=== PATIENT | male | born 1975 | race Caucasian/White ===

== ENCOUNTER 2019-12-07 19:40 | Emergency (ER) | payer OTHER, SELFPAY ==
[2019-12-07 19:56] VITALS: BP 129/76; PULSE 87; RESP 18; TEMP 36.1; O2SAT 100
--- NOTE | 2019-12-07 20:44 | ED.SKABFB ---
HPI - Skin/Abscess/Foreign Bdy General Chief complaint: Skin/Abscess/Foreign Body Stated complaint: fish hook in right thumb Time Seen by Provider: 12/07/19 20:17 Source: patient and family Mode of arrival: ambulatory Limitations: no limitations History of Present Illness HPI narrative: 43-year-old with no major medical problems here with complaints of fishhook to the right thumb, patient states that he was trying to get the hook out for last 1 hour but he was having extreme pain could not remove the hook at home. He denies any other complaints or injuries at this time. Tetanus up to date: yes Location: R hand (Right thumb) Severity: mild Exacerbating factors: none Context: none Associated symptoms: denies other symptoms Related Data Allergies Allergy/AdvReac Type Severity Reaction Status Date / Time levofloxacin [From Levaquin] Allergy Severe unknown Verified 03/25/19 15:31 Review of Systems Review of Systems: All systems reviewed & are unremarkable except as noted in HPI and below Constitutional: Constitutional: Reports no additional constitutional complaints Cardiovascular: Cardiovascular: Reports no additional cardiovascular complaints Respiratory: Respiratory: Reports no additional respiratory complaints Gastrointestinal: Gastrointestinal: Reports no additional gastrointestinal complaints PMFSH Past Medical History Medical History Anxiety GERD (gastroesophageal reflux disease) Surgical History Surgical History H/O knee surgery Hx of appendectomy Family History Family History Mother Hypertension Father Patient's father is in good health Social History Social History Smoking packs per day: 4 Smoking cigarettes per day: 80.0 Smoking status: Current some day smoker Alcohol intake: current Substance use type: does not use Exam Narrative: Exam Narrative: GENERAL: Well-appearing, well-nourished, and in no acute distress. HEAD: Normocephalic, atraumatic.. CHEST: Clear to auscultation. No respiratory distress. HEART: Regular rate and rhythm. No murmur heard. EXTREMITIES: Normal range of motion. No edema.fish hook present to the right thumb SKIN: Warm, dry, no rash. NEURO: No focal deficits. Alert and oriented x3. PSYCH: Normal mood and affect. Course Vital Signs Vital signs: Vital Signs Temperature 36.1 C L 12/07/19 19:56 Pulse Rate 87 12/07/19 19:56 Respiratory Rate 18 12/07/19 19:56 Blood Pressure 129/76 12/07/19 19:56 Pulse Oximetry 100 12/07/19 19:56 Temperature 36.1 C L 12/07/19 19:56 Pulse Rate 87 12/07/19 19:56 Respiratory Rate 18 12/07/19 19:56 Blood Pressure 129/76 12/07/19 19:56 Pulse Oximetry 100 12/07/19 19:56 Procedures Other Procedure Procedure 1: Other Procedure: Fish Hook rremoval Inform patient about the procedure. 1% lidocaine given locally at the base of the nail. With gentle manipulation with the nail forceps hook was removed in total. Finger was soaked in Betadine solution for 10 minutes and was later washed with sterile water and Coban dressing was applied. Patient tolerated procedure well. Discharge Plan Discharge Clinical Impression: Fish hook injury of finger Qualifiers: Encounter type: initial encounter Laterality: right Qualified Code(s): S69.91XA - Unspecified injury of right wrist, hand and finger(s), initial encounter Patient Disposition: Home, Self-Care Condition: Stable Instructions: Antibiotic Form, Puncture Wound (DC) Additional Instructions: take tylenol or motrin for pain Prescriptions: No Action alprazolam 0.25 mg tablet 0.25 mg PO DAILY PRN (Reason: anxiety) Qty: 30 RF: 2 Follow-up/Referrals: Josh Medina DO [Primary Care Provider] - Time of Dispositio
[2019-12-07 21:05] VITALS: BP 131/65; PULSE 83; RESP 16; TEMP 36.8; O2SAT 100
== END 2019-12-07 21:10 | disposition home or self-care (01) ==
PROVIDERS: Emergency Provider Family Medicine; PCP Internal Medicine
DX: S60.351A Superficial foreign body of right thumb, initial encounter (principal); K21.9 Gastro-esophageal reflux disease without esophagitis; F17.210 Nicotine dependence, cigarettes, uncomplicated; W45.8XXA Other foreign body or object entering through skin, initial encounter
CPT/HCPCS: 99282

== ENCOUNTER 2020-08-12 06:17 | Emergency (ER) | payer OTHER, SELFPAY ==
--- NOTE | ~2020-08-12 | CT_ITS ---
EXAMINATION: CT abdomen pelvis w con DATE: 08/12/2020 08:20 INDICATION: Right lower quadrant abdominal pain. TECHNIQUE: Computed tomography (CT) of the abdomen and pelvis was performed with 100 mL Omnipaque 350 intravenous contrast. Automated exposure control and iterative reconstruction technique were employe d. The dose-length product was 1168.90 mGy-cm. COMPARISON: None. FINDINGS: The visualized portions of the lung bases are clear without pneumonia or pleural effusion. The heart size is normal. No pericardial effusion. The liver, gallbladder, spleen, pancreas, adrenal glands, and kidneys are normal. The prostate is mildly enlarged. There are changes of appendectomy. T here are no pathologically enlarged lymph nodes. There is no free intraperitoneal fluid. There is an umbilical hernia containing fat. There are small bilateral inguinal hernias containing fat. There are benign bone islands in the pelvis and proximal femora. There is mild thoracolumbar spondylosis. IMPRESSION: 1. Umbilical hernia and bilateral inguinal hernias containing fat. Reviewed, dictated and finalized at location A.
--- NOTE | ~2020-08-12 | XR_ITS ---
EXAMINATION: XR hip RT min 3V w AP pelvis DATE: 08/12/2020 08:32 INDICATION: Atraumatic right hip pain. TECHNIQUE: Anteroposterior view of the pelvis and anteroposterior, frog leg and crosstable lateral vi ews of the right hip were obtained. COMPARISON: CT dated 08/12/2020 FINDINGS: Bone alignment is normal. No fracture or suspected avascular necrosis. Bilateral hip and sacroiliac j oint spaces are normal. Small right os acetabulum. Bilateral decreased femoral head neck offset with mild cystic change at the bilateral anterosuperior femoral head neck junctions suggesting sequela of cam-type femoral acetabular impingement. Excreted contrast in the immediately prior contrast enhanced CT in the visualized portions of the normal appearing bilateral mid to distal bilateral ureters and in the bladder. Postoperative changes with suture line in the right lower quadrant. IMPRESSION: 1. 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 No acute osseous normality. Reviewed, dictated and finalized at location A. IMPRESSION: 1. 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 No acute osseous normality.
[2020-08-12 06:29] VITALS: BP 143/97; PULSE 82; RESP 16; TEMP 37.2; O2SAT 100
--- NOTE | 2020-08-12 07:04 | ED.LOWEXIN ---
HPI - Extremity Injury (Lower) General Chief Complaint: Extremity Injury, Lower Stated Complaint: hip pain Time Seen by Provider: 08/12/20 07:03 Source: patient Mode of arrival: ambulatory Limitations: no limitations History of Present Illness HPI Narrative: Patient is a 44-year-old male who presents for evaluation of right hip pain. Patient states hip pain began on Sunday, no reported trauma. Described as dull, aching in nature, worse with movement over the past 48 hours. No fever, chills, he has had some mild nausea. No radiation of the pain to the back. He does report some lower right abdominal pain and radiation into the pelvis. No dysuria or hematuria. No history of nephrolithiasis. No history of injury to that hip or extremity in the past. No swelling or bruising. No numbness. No weakness. Pain at times is sharp in nature, no associated swelling or redness. He has a history of appendectomy. Denies other abdominal surgical history or history of medical problems. Patient currently taking a course of Keflex for a bee sting on his right arm, states that swelling and redness is now basically resolved. Related Data Allergies Allergy/AdvReac Type Severity Reaction Status Date / Time levofloxacin [From Levaquin] Allergy Severe unknown Verified 08/12/20 06:40 Review of Systems Review of Systems: Narrative: CONSTITUTIONAL: Denies fever, chills, or sweats. ENT: Denies rhinorrhea, congestion, sore throat, or otalgia. CARDIOVASCULAR: Denies chest pain, palpitations, or edema. RESPIRATORY: Denies cough or dyspnea. GASTROINTESTINAL: Reports right lower pelvic pain, reports nausea without vomiting, denies diarrhea GENITOURINARY: Denies dysuria or hematuria. No frequency or urgency SKIN: Denies rash or itching. MUSCULOSKELETAL: Denies back pain, reports right hip pain NEUROLOGIC: Denies headache, numbness, or weakness. PSYCHIATRIC: Denies anxiety or depression. [facility] Past Medical History Medical History Anxiety GERD (gastroesophageal reflux disease) Surgical History Surgical History H/O knee surgery Hx of appendectomy Family History Family History Mother Hypertension Father Patient's father is in good health Social History Social History Years smoked: 15 Smoking status: Current every day smoker Alcohol intake: current Substance use type: does not use Gender identity (if verbalized by the patient): Male Exam Narrative: Exam Narrative: GENERAL: Awake, alert, conversant HEAD: Normocephalic, atraumatic. EYES: PERRLA and EOMI. ENT: Nares clear, no rhinorrhea or epistaxis. Mucous membranes moist. NECK: Supple. CHEST: No respiratory distress, breathing even and non labored HEART: Regular rate, sinus rhythm ABDOMEN:Non distended, non tender Pelvis: Tenderness to the right lateral hip without erythema or edema. No deformity. Patient with normal range of motion however there is pain present. No right lower extremity pitting edema or ecchymoses. EXTREMITIES: Normal range of motion. No edema. SKIN: Warm, dry, no rash. NEURO:No focal deficits. Alert and oriented x3 Course Vital Signs Vital signs: Vital Signs Temperature 37.2 C 08/12/20 06:29 Pulse Rate 82 08/12/20 06:29 Respiratory Rate 16 08/12/20 06:29 Blood Pressure 143/97 H 08/12/20 06:29 Pulse Oximetry 100 08/12/20 06:29 Temperature 37.2 C 08/12/20 06:29 Pulse Rate 82 08/12/20 06:29 Respiratory Rate 16 08/12/20 06:29 Blood Pressure 143/97 H 08/12/20 06:29 Pulse Oximetry 100 08/12/20 06:29 MDM - Extremity Injury (Lower) MDM Narrative Medical decision making narrative: Patient presenting for evaluation of atraumatic right hip pain. At the time of assessment, ABCs are intact and vital signs are st
[2020-08-12] MEDS: MORPHINE SULFATE (*CRX) 4 MG/ML INJ IV PUSH (07:28)
[2020-08-12] MEDS: ONDANSETRON INJ 4 MG/2 ML VIAL IV PUSH (07:28)
[2020-08-12] MEDS: SODIUM CHLORIDE 0.9% IV 1,000 ML 999 ML IV CONT (07:28)
[2020-08-12 07:31] LABS: Basophils Absolute Auto 0.1 K/mm3 (0.0-0.1); Basophils Percent Auto 0.6 % (0.2-1.2); Eosinophils Absolute Auto 0.1 K/mm3 (0-0.3); Hematocrit 45.3 % (42.0-52.0); Immature Granulocyte Absolute 0.18 K/mm3 (0.00-0.031); Immature Granulocyte Percent A 1.8 % (0-0.5); Lymphocytes Absolute Auto 1.58 K/mm3 (0.9-3.2); Lymphocytes Percent Auto 15.4 % (18.3-44.2); Mean Corpuscular HGB Conc 35.3 g/dl (32-36); Mean Corpuscular Hemoglobin 31.1 pg (26-34); Mean Platelet Volume 9.2 fl (7.4-10.4); Monocytes Absolute Auto 0.9 K/mm3 (0.1-0.6); Monocytes Percent Auto 8.6 % (2.6-8.5); Neutrophils Absolute Auto 7.5 K/mm3 (1.3-6.7); Neutrophils Percent Auto 72.6 % (45.5-73.1); Platelet Count Result 191 k/mm3 (150-375); Red Blood Count 5.15 M/mm3 (4.6-6.20); Red Cell Distribution Width 11.9 % (11.5-14.5); White Blood Count 10.3 K/mm3 (4.5-10.0)
[2020-08-12 07:37] LABS: Add Urine Microscopic? NO; Appearance Urine Clear (Clear); Bilirubin Urine Negative (Negative); Blood Urine Negative (Negative); Color Urine Colorless (Yellow); Glucose Urine UA Negative (Negative); Ketones Urine Negative (Negative); Leukocyte Esterase Ur Negative LEU/UL (Negative); Nitrate Urine Negative (Negative); Protein Urine Negative (Negative); Urobilinogen Urine Negative mg/dL (<2.0)
[2020-08-12 07:39] LABS: Alanine Aminotransferase 67 U/L (4-50); Alkaline Phosphatase 58 U/L (38-126); Anion Gap 7 mmol/L (8-16); Aspartate Amino Transferase 42 U/L (17-59); Bilirubin,Total 0.6 mg/dL (0.2-1.3); Blood Urea Nitrogen 13 mg/dL (9-20); CRP 0.9 mg/dL (<1.0); Calcium 9.1 mg/dL (8.4-10.2); Carbon Dioxide 25 mmol/L (22-30); Chloride 107 mmol/L (98-107); Estimated CRCL calculation 117 ml/min; Estimated Glomerular Filt Rate > 60; Glucose 100 mg/dL (75-110); Lipase 318 U/L (23-300); Potassium 4.1 mmol/L (3.4-5.0); Sodium 139 mmol/L (137-145)
[2020-08-12 07:40] LABS: Specific Grav Ur 1.003 (1.001-1.035)
[2020-08-12 08:28] LABS: Erythrocyte Sedimentation Rate 8 mm/hr (0-20)
[2020-08-12 10:10] VITALS: BP 139/92; PULSE 82; RESP 16
== END 2020-08-12 10:10 | disposition home or self-care (01) ==
PROVIDERS: Emergency Provider Emergency Medicine; PCP Internal Medicine
DX: M25.851 Other specified joint disorders, right hip (principal); K21.9 Gastro-esophageal reflux disease without esophagitis; F41.9 Anxiety disorder, unspecified; F17.200 Nicotine dependence, unspecified, uncomplicated; K42.9 Umbilical hernia without obstruction or gangrene; K40.20 Bilateral inguinal hernia, without obstruction or gangrene, not specified as recurrent
CPT/HCPCS: 36415; 73502; 74177; 80053; 81003; 83690; 85025; 85652; 86140; 96361; 96374; 96375; 99284; J2270; J2405; J7030; Q9967

== ENCOUNTER 2022-01-23 00:55 | Day surgery (SDC) | payer OTHER, SELFPAY ==
[2022-01-12 13:31] VITALS: BMI 27.0
[2022-01-23 07:15] VITALS: BP 131/79; PULSE 81; RESP 18; TEMP 36.2; O2SAT 100; BMI 27.4
[2022-01-23] MEDS: LACTATED RINGERS 1,000 ML 150 ML IV CONT (07:30)
--- NOTE | 2022-01-23 08:02 | PM.HPGS ---
History of Present Illness History of Present Illness Consent: Risks, benefits, and alternatives have been discussed and questions answered. Patient agrees to proceed with procedure. Chief complaint: neoplasm screening Narrative: Yan Hastings is a 46 year old male presents for screening colonoscopy. Patient has current weight appetite bowel movements appear normal. Patient denies abdominal pain. He has had no bleeding. Family history is significant his brother and father his grandmother have had colon polyps. Patient presents today for screening exam. Review of Systems Review of Systems: Review of systems noncontributory. [facility] Past Medical History Medical History (Updated 10/12/21 @ 14:39 by Kristal Hays NP) Anxiety GERD (gastroesophageal reflux disease) Hypertension Surgical History Surgical History H/O knee surgery Hx of appendectomy Family History Family History (Updated 10/12/21 @ 14:16 by Kaylan Pop CMA) Mother Hypertension Father Patient's father is in good health Patient states most of his family gets a colonoscopy every 5 years, unsure why, thinks grandmother of colon cancer. Social History Social History (Updated 10/12/21 @ 14:17 by Kaylan Pop CMA) Smoking packs per day: 0.5 Smoking cigarettes per day: 10.0 Years smoked: 15 Smoking pack-years: 7.50 Smoking status: Current every day smoker Tobacco type: cigarettes Alcohol intake: current Drinks per week: 30 Alcohol use details: daily Substance use: never Substance use type: does not use Living arrangements: with family Gender identity (if verbalized by the patient): Male Spiritual care concerns: No Meds Home Medications and Allergies Home Medications Medication Instructions Recorded Confirmed Type lisinopril 10 mg tablet 10 mg PO DAILY #90 tabs 04/13/21 01/23/22 Rx ibuprofen 200 mg tablet 400 mg PO Q6H PRN Pain 10/12/21 01/23/22 History alprazolam 0.25 mg tablet 0.25 mg PO DAILY PRN anxiety #30 01/20/22 01/23/22 Rx tabs Allergies Allergy/AdvReac Type Severity Reaction Status Date / Time levofloxacin [From Levaquin] Allergy Severe unknown Verified 01/23/22 07:21 Vital Signs Vital Signs - 24 hr 01/23/22 07:15 Temperature 97.1 F L Pulse Rate 81 Respiratory Rate 18 Blood Pressure 131/79 Pulse Oximetry 100 Oxygen Delivery Room Air Exam Narrative: Physical exam reveals patient to be alert. Vital signs stable. HEENT exam is unremarkable. Patient is anicteric. Lungs are clear to auscultation and percussion. Heart is without murmur or extra sounds. Abdomen bowel sounds are present soft nontender with no organomegaly. Digital external rectal exam is normal. Assessment and Plan Assessment and plan (1) Screening for colon cancer: Code(s): Z12.11 - Encounter for screening for malignant neoplasm of colon Status: Acute Assessment and Plan: Patient presents for screening colonoscopy. He does have a family history of colon polyps in several first-degree relatives. May benefit from follow-up colonoscopy at 5-7 year intervals. Further recommendations may be given after endoscopy.
--- NOTE | 2022-01-23 08:20 | P.PNAN_ITS ---
Anes - Initial Pre Proc Eval Procedure: Operation Date: 01/23/22 08:30 Proposed Procedures p Screening Colonoscopy - Joseph Mehta MD Date/Time: 01/23/22 08:20 Surgeon: Joseph Mehta MD Pre Op Diagnosis: neoplasm screening Patient Data Age: 46 Gender: M Height: 1.88 m Weight: 96.9 kg Last Vital Signs Temp 97.1 F L 01/23/22 07:15 Pulse 81 01/23/22 07:15 Resp 18 01/23/22 07:15 BP 131/79 01/23/22 07:15 Pulse Ox 100 01/23/22 07:15 O2 Del Method Room Air 01/23/22 07:15 Allergies Allergy/AdvReac Type Severity Reaction Status Date / Time levofloxacin [From Levaquin] Allergy Severe unknown Verified 01/23/22 07:21 Home Medications Medication Instructions Recorded Confirmed Type lisinopril 10 mg tablet 10 mg PO DAILY #90 tabs 04/13/21 01/23/22 Rx ibuprofen 200 mg tablet 400 mg PO Q6H PRN Pain 10/12/21 01/23/22 History alprazolam 0.25 mg tablet 0.25 mg PO DAILY PRN anxiety #30 01/20/22 01/23/22 Rx tabs Patient hx anesthesia problems: none Family hx anesthesia problems: none Results Review: All pre-operative results and documents have been reviewed as part of the pre- operative evaluation. [facility] Past Medical History Medical History (Updated 10/12/21 @ 14:39 by Kristal Hays NP) Anxiety GERD (gastroesophageal reflux disease) Hypertension Surgical History Surgical History H/O knee surgery Hx of appendectomy Family History Family History (Updated 10/12/21 @ 14:16 by Kaylan Pop CMA) Mother Hypertension Father Patient's father is in good health Patient states most of his family gets a colonoscopy every 5 years, unsure why, thinks grandmother of colon cancer. Social History Social History (Updated 10/12/21 @ 14:17 by Kaylan Pop CMA) Smoking packs per day: 0.5 Smoking cigarettes per day: 10.0 Years smoked: 15 Smoking pack-years: 7.50 Smoking status: Current every day smoker Tobacco type: cigarettes Alcohol intake: current Drinks per week: 30 Alcohol use details: daily Substance use: never Substance use type: does not use Living arrangements: with family Gender identity (if verbalized by the patient): Male Spiritual care concerns: No Anes - Eval Final PreProcedure Day of Procedure 01/23/22 08:20 Patient weight: normal Heart: regular rate and rhythm Lungs: clear to auscultation Airway: Mallampati scale class II Neurological: alert and oriented Last oral intake: >/= 8 hours ASA classification: II Emergent: no Anesthetic plan: proceed Anesthesia type and monitoring: general GIVS and standard monitoring Results Review: All pre-operative results and documents have been reviewed as part of the pre- operative evaluation. Informed Consent: The patient's anesthetic plan and its attendant risks and benefits were discussed with the patient/family/POA. Questions were solicited and answers provided to the satisfaction of the patient/family/POA.
[2022-01-23 08:44] VITALS: BP 116/85; PULSE 83; RESP 18; O2SAT 100
[2022-01-23 08:54] VITALS: BP 115/75; PULSE 85; RESP 18; O2SAT 100
[2022-01-23 09:04] VITALS: BP 114/79; PULSE 84; RESP 18; O2SAT 99
== END 2022-01-23 09:13 | disposition home or self-care (01) ==
PROVIDERS: PCP Internal Medicine; Visit Provider Internal Medicine Gastroenterology
PROC: 0DJD8ZZ Inspection of Lower Intestinal Tract, Via Natural or Artificial Opening Endoscopic (ICD-10-PCS; CPT 45378; principal; 2022-01-23 08:30)
DX: Z12.11 Encounter for screening for malignant neoplasm of colon (principal); D12.2 Benign neoplasm of ascending colon; Z83.71 Family history of colonic polyps; I10 Essential (primary) hypertension; F41.9 Anxiety disorder, unspecified; F17.210 Nicotine dependence, cigarettes, uncomplicated
CPT/HCPCS: 45385; 88305; J2704; J7120

== ENCOUNTER 2022-04-18 09:03 | Outpatient (CLI) | payer OTHER, SELFPAY ==
[2022-04-18 19:08] LABS: Alanine Aminotransferase 40 U/L (6-50); Albumin Level 4.3 g/dL (3.5-5.1); Alkaline Phosphatase 55 U/L (38-126); Anion Gap 6 mmol/L (8-16); Aspartate Amino Transferase 45 U/L (17-59); Bilirubin,Total 0.9 mg/dL (0.2-1.3); Blood Urea Nitrogen 18 mg/dL (9-20); Calcium 9.3 mg/dL (8.4-10.2); Carbon Dioxide 30 mmol/L (22-30); Chloride 101 mmol/L (98-107); Cholesterol 207 mg/dL (0-200); Estimated Glomerular Filt Rate > 60; Glucose 94 mg/dL (65-110); HDL Direct 50 mg/dL; Potassium 4.6 mmol/L (3.4-5.0); Sodium 137 mmol/L (137-145); Triglycerides 67 mg/dL (<150)
[2022-04-18 19:19] LABS: LDL Cholesterol Direct 112 mg/dL
[2022-04-18 19:34] LABS: Thyroid Stimulating Hormone 0.972 uIU/mL (0.465-4.680)
[2022-04-18 20:38] LABS: Basophils Absolute Auto 0.1 K/mm3 (0.0-0.1); Basophils Percent Auto 0.7 % (0.2-1.2); Eosinophils Absolute Auto 0.1 K/mm3 (0-0.3); Eosinophils Percent Auto 1.7 % (0-4.4); Hematocrit 47.5 % (42.0-52.0); Hemoglobin 16.1 g/dL (14.0-18.0); Immature Granulocyte Absolute 0.03 K/mm3 (0.00-0.031); Immature Granulocyte Percent A 0.4 % (0-0.5); Lymphocytes Percent Auto 30.6 % (18.3-44.2); Mean Corpuscular HGB Conc 33.9 g/dl (32-36); Mean Corpuscular Volume 91.3 fl (80-100); Mean Platelet Volume 9.8 fl (7.4-10.4); Monocytes Absolute Auto 0.8 K/mm3 (0.1-0.6); Neutrophils Absolute Auto 4.3 K/mm3 (1.3-6.7); Neutrophils Percent Auto 56.6 % (45.5-73.1); Platelet Count Result 235 k/mm3 (150-375); Red Cell Distribution Width 11.7 % (11.5-14.5); White Blood Count 7.5 K/mm3 (4.5-10.0)
[2022-04-28 16:20] LABS: Testosterone Free 48.9 pg/mL (35.0-155.0); Testosterone Total 376 ng/dL (250-1100)
== END 2022-04-18 09:04 | disposition home or self-care (01) ==
LOC: ANHGOSHLAB 09:04
PROVIDERS: PCP Internal Medicine; Visit Provider Nurse Practitioner
DX: R53.83 Other fatigue (principal); I10 Essential (primary) hypertension; Z13.220 Encounter for screening for lipoid disorders; Z13.29 Encounter for screening for other suspected endocrine disorder
CPT/HCPCS: 36415; 80053; 80061; 84402; 84403; 84443; 85025

== ENCOUNTER 2023-04-01 20:21 | Emergency (ER) | payer OTHER, SELFPAY ==
--- NOTE | ~2023-04-01 | XR_ITS ---
EXAMINATION: XR chest 2V Exam Date/Time: 04/01/2023 20:35 MAGAZINE JOURNALIST HISTORY: cp Comparison: 05/23/2004. RESULT: Lines, tubes, and devices: None. Lungs and pleura: Clear. Cardiomediastinal silhouette: Stable. Other: No acute osseous or upper abdominal finding. IMPRESSION: No acute cardiopulmonary process. Reviewed, dictated and finalized at location K. ZINE JOURNALIST
--- NOTE | 2023-04-01 20:22 | ECG_ITS ---
Measurements Intervals [place] Rate: 99 P: 53 MT: 186 QRS: 31 QRSD: 111 T: 62 QT: 326 QTc: 419 Interpretive Statements SINUS RHYTHM INCOMPLETE RIGHT BUNDLE BRANCH BLOC BASELINE ARTIFACT- I, II, AVR BORDERLINE ECG NO PREVIOUS ECG AVAILABLE FOR COMPARISON Electronically Signed On 04-01-2023 21:22:14 [facility] by Jese Wu D.O.
[2023-04-01 20:27] VITALS: BP 144/96; PULSE 104; RESP 14; TEMP 36.8; O2SAT 98
[2023-04-01 20:35] LABS: Basophils Percent Auto 0.3 % (0.2-1.2); Eosinophils Absolute Auto 0.1 K/mm3 (0-0.3); Eosinophils Percent Auto 1.5 % (0-4.4); Hematocrit 45.7 % (42.0-52.0); Hemoglobin 15.6 g/dL (14.0-18.0); Immature Granulocyte Absolute 0.03 K/mm3 (0.00-0.031); Immature Granulocyte Percent A 0.3 % (0-0.5); Lymphocytes Absolute Auto 2.52 K/mm3 (0.9-3.2); Lymphocytes Percent Auto 28.1 % (18.3-44.2); Mean Corpuscular HGB Conc 34.1 g/dl (32-36); Mean Corpuscular Hemoglobin 30.6 pg (26-34); Mean Corpuscular Volume 89.8 fl (80-100); Mean Platelet Volume 8.9 fl (7.4-10.4); Monocytes Absolute Auto 0.8 K/mm3 (0.1-0.6); Monocytes Percent Auto 8.8 % (2.6-8.5); Neutrophils Absolute Auto 5.5 K/mm3 (1.3-6.7); Platelet Count Result 212 k/mm3 (150-375); Red Blood Count 5.09 M/mm3 (4.6-6.20); Red Cell Distribution Width 11.7 % (11.5-14.5)
[2023-04-01 20:46] LABS: INR 0.9; Prothrombin Time 12.3 Seconds (11.1-14.7)
[2023-04-01 20:48] LABS: Ethanol 79 mg/dL (<10)
[2023-04-01 20:49] LABS: Alanine Aminotransferase 45 U/L (6-50); Albumin Level 4.5 g/dL (3.5-5.1); Alkaline Phosphatase 61 U/L (38-126); Anion Gap 10 mmol/L (8-16); Aspartate Amino Transferase 37 U/L (17-59); Bilirubin,Total 0.7 mg/dL (0.2-1.3); Blood Urea Nitrogen 14 mg/dL (9-20); Calcium 9.2 mg/dL (8.4-10.2); Carbon Dioxide 24 mmol/L (22-30); Chloride 100 mmol/L (98-107); Estimated CRCL calculation 115 ml/min; Estimated Glomerular Filt Rate > 60; Glucose 114 mg/dL (65-110); Lipase 322 U/L (23-300); Potassium 3.3 mmol/L (3.4-5.0); Sodium 134 mmol/L (137-145)
[2023-04-01 21:00] LABS: Troponin I 0.015 ng/mL (0.000-0.034)
[2023-04-01] MEDS: ASPIRIN 81 MG CHEWABLE TABLET 324 MG PO (21:22)
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
[2023-04-01 23:17] LABS: Appearance Urine Clear (Clear); Bilirubin Urine Negative (Negative); Blood Urine Negative (Negative); Color Urine Yellow (Yellow); Glucose Urine UA Negative (Negative); Ketones Urine Negative (Negative); Leukocyte Esterase Ur Negative LEU/UL (Negative); Nitrate Urine Negative (Negative); Protein Urine Negative (Negative); Specific Grav Ur 1.007 (1.001-1.035); Urobilinogen Urine 0.2 mg/dL (<2.0); pH Urine 5.5 (5.0-9.0)
[2023-04-01 23:20] LABS: Add Urine Microscopic? NO
[2023-04-01 23:40] LABS: Troponin I 0.015 ng/mL (0.000-0.034)
[2023-04-02 00:04] VITALS: BP 142/92; PULSE 90; RESP 15; O2SAT 98
[2023-04-02 00:12] VITALS: BP 140/94; PULSE 88; RESP 16; O2SAT 98
== END 2023-04-02 00:13 | disposition home or self-care (01) ==
PROVIDERS: Emergency Provider Emergency Medicine; PCP Internal Medicine
DX: R07.89 Other chest pain (principal); I10 Essential (primary) hypertension; K21.9 Gastro-esophageal reflux disease without esophagitis; F17.210 Nicotine dependence, cigarettes, uncomplicated; I45.10 Unspecified right bundle-branch block
CPT/HCPCS: 36415; 71046; 80053; 80307; 81003; 83690; 84484; 85025; 85610; 85730; 93005; 99284; A9270

== ENCOUNTER 2023-04-05 09:39 | Outpatient (CLI) | payer OTHER, SELFPAY ==
[2023-04-05 14:05] LABS: Alanine Aminotransferase 49 U/L (6-50); Albumin Level 4.3 g/dL (3.5-5.1); Alkaline Phosphatase 56 U/L (38-126); Anion Gap 4 mmol/L (8-16); Aspartate Amino Transferase 52 U/L (17-59); Bilirubin,Total 0.9 mg/dL (0.2-1.3); Blood Urea Nitrogen 17 mg/dL (9-20); Calcium 9.4 mg/dL (8.4-10.2); Carbon Dioxide 31 mmol/L (22-30); Chloride 104 mmol/L (98-107); Cholesterol 177 mg/dL (0-200); Estimated Glomerular Filt Rate > 60; Glucose 99 mg/dL (65-110); HDL Direct 38 mg/dL; Potassium 4.3 mmol/L (3.4-5.0); Sodium 139 mmol/L (137-145); Triglycerides 101 mg/dL (<150)
[2023-04-05 14:16] LABS: LDL Cholesterol Direct 110 mg/dL
== END 2023-04-05 09:40 | disposition home or self-care (01) ==
LOC: ANHGOSHLAB 09:41
PROVIDERS: PCP Internal Medicine; Visit Provider Nurse Practitioner
DX: E87.6 Hypokalemia (principal); Z13.220 Encounter for screening for lipoid disorders
CPT/HCPCS: 36415; 80053; 80061

== ENCOUNTER 2024-04-18 07:55 | Outpatient (CLI) | payer OTHER, SELFPAY ==
[2024-04-18 14:02] LABS: Basophils Absolute Auto 0.1 K/mm3 (0.0-0.1); Basophils Percent Auto 0.7 % (0.2-1.2); Eosinophils Absolute Auto 0.2 K/mm3 (0-0.3); Eosinophils Percent Auto 2.4 % (0-4.4); Hematocrit 45.4 % (42.0-52.0); Hemoglobin 15.7 g/dL (14.0-18.0); Immature Granulocyte Absolute 0.03 K/mm3 (0.00-0.031); Immature Granulocyte Percent A 0.4 % (0-0.5); Lymphocytes Absolute Auto 1.97 K/mm3 (0.9-3.2); Lymphocytes Percent Auto 27.7 % (18.3-44.2); Mean Corpuscular HGB Conc 34.6 g/dl (32-36); Mean Corpuscular Volume 89.5 fl (80-100); Mean Platelet Volume 9.6 fl (7.4-10.4); Monocytes Absolute Auto 0.8 K/mm3 (0.1-0.6); Monocytes Percent Auto 11.7 % (2.6-8.5); Neutrophils Absolute Auto 4.1 K/mm3 (1.3-6.7); Neutrophils Percent Auto 57.1 % (45.5-73.1); Platelet Count Result 219 k/mm3 (150-375); Red Blood Count 5.07 M/mm3 (4.6-6.20); Red Cell Distribution Width 11.6 % (11.5-14.5); White Blood Count 7.1 K/mm3 (4.5-10.0)
[2024-04-18 14:13] LABS: Alanine Aminotransferase 43 U/L (6-50); Albumin Level 4.1 g/dL (3.5-5.1); Alkaline Phosphatase 56 U/L (38-126); Anion Gap 9 mmol/L (4-12); Aspartate Amino Transferase 36 U/L (17-59); Bilirubin,Total 0.9 mg/dL (0.2-1.3); Blood Urea Nitrogen 17 mg/dL (9-20); Calcium 9.4 mg/dL (8.4-10.2); Carbon Dioxide 29 mmol/L (22-30); Chloride 100 mmol/L (98-107); Cholesterol 177 mg/dL (0-200); Estimated Glomerular Filt Rate > 60; Glucose 92 mg/dL (65-110); HDL Direct 49 mg/dL; Sodium 138 mmol/L (137-145); Triglycerides 132 mg/dL (<150)
[2024-04-18 17:20] LABS: LDL Cholesterol Direct 103 mg/dL
== END 2024-04-18 07:56 | disposition home or self-care (01) ==
LOC: ANHGOSHLAB 07:56
PROVIDERS: PCP Internal Medicine; Visit Provider Nurse Practitioner
DX: Z13.29 Encounter for screening for other suspected endocrine disorder (principal); Z13.220 Encounter for screening for lipoid disorders
CPT/HCPCS: 36415; 80053; 80061; 85025

== ENCOUNTER 2024-04-28 15:18 | Outpatient (CLI) | payer OTHER, SELFPAY ==
--- NOTE | ~2024-04-28 | US_ITS ---
EXAMINATION: US scrotum doppler DATE: 04/28/2024 15:41 INDICATION: Disorder of male genital organs TECHNIQUE: Testicular sonogram utilizing grayscale and Doppler COMPARISON: None. FINDINGS: The right testis measures 3.8 x 3.5 x 2.3 cm. The left testis measures 4.4 x 3.0 x 2.2 cm. Symmetric normal grayscale appearance to both testes. There is normal vascular flow to both testes. The right e pididymis is normal with normal vascular flow. The left epididymis is normal with normal vascular javier w. Mild left varicocele. No hydrocele or right-sided varicocele. IMPRESSION: 1. Mild left varicocele. Otherwise normal scrotal ultrasound. Reviewed, dictated and finalized at location A. LITY SERVICE MANAGER
== END 2024-04-28 15:19 | disposition home or self-care (01) ==
LOC: GOSHIMG 15:18
PROVIDERS: PCP Nurse Practitioner; Visit Provider Nurse Practitioner
DX: I86.1 Scrotal varices (principal)
CPT/HCPCS: 76870; 93976